=== PATIENT | female | born 2000 | race Two or more races ===

== ENCOUNTER → 2024-04-27 | Outpatient (CLI) | payer BC, SELFPAY ==
--- NOTE | 2024-04-27 14:00 | XR_ITS ---
Examination: Abdomen sonogram, complete Date and time of exam: April 27, 2024 1353 hours INDICATIONS: Elevated liver enzymes on laboratory examination this week. Technique: Multiple real-time grayscale transabdominal sonographic images of the abdomen have been obtained. Findings: Normal gallbladder. Normal common bile duct 0.3 cm Pancreatic head 3.7 cm Aorta not enlarged. Liver 15.8 cm fatty infiltration lobular contour Normal hepatopedal portal venous flow Patent IVC Right kidney 9.7 cm cortex 1.6 cm Left kidney 11.6 cm renal cortex 2.3 cm Moderate bilateral renal parenchymal scar formation Spleen 11.5 cm IMPRESSION: Prominent pancreatic head, clinical correlation advised, consider MRCP follow-up Primary hepatocellular disease Moderate bilateral renal parenchymal scar formation
== END | disposition home or self-care (01) ==
PROVIDERS: PCP Nurse Practitioner Family; Referring Provider Nurse Practitioner Family; Visit Provider Nurse Practitioner Family
DX: K86.89 Other specified diseases of pancreas (principal); N28.89 Other specified disorders of kidney and ureter
CPT/HCPCS: 76700